=== PATIENT | female | born 1960 | race African-American/Black ===

== ENCOUNTER 2016-08-22 01:44 | Emergency (ER) | payer BC ==
[~2016-08-22] VITALS: Ht 162.6 cm; Wt 84.5 kg
[~2016-08-22 01:44] MED LIST: HYDR-906 PO; HYDR25TA6; NAPR-260 PO
[2016-08-22 01:49] VITALS: Ht 162.6 cm; Wt 84.5 kg
[2016-08-22] MEDS ORDERED: CEPH-443 PO (02:17)
--- NOTE | 2016-08-22 02:46 | ERD ---
ER Documentation Chief Complaint Date/Time DATE: 08/22/16 TIME: 02:38 Chief Complaint RT BREAST SWELLING AND PAIN X 2 DAYS. 2 LUMPS REMOVED 1 YR AGO HPI 55-year-old female presents here in emergency department for complaints of right nipple redness and swelling for 2 days. Patient's complaining of cracking of the nipple, has been having redness and swelling on affected area for the last 2 days. Patient describes the pain as throbbing pain, 8/10 scale, is worse upon touching the area. Patient denies any discharge coming from the area. Patient did not take any medications for symptoms. ROS All systems reviewed and are negative except as per history of present illness. Medications Home Meds Active Scripts Cephalexin* (Keflex*) 500 Mg Capsule, 500 MG PO QID for 10 Days, CAP Prov:ANIRUDH PEREZ [employer] 08/22/16 Naproxen* (Naprosyn*) 500 Mg Tablet, 500 MG PO BID Y for PAIN AND/OR INFLAMMATION, #30 TAB Prov:VIKTORIA MILLER PA-C 07/27/16 Hydrocodone/Acetaminophen (Bandy 5-325 Tablet) 1 Each Tablet, 1 TAB PO Q6H Y for PAIN, #5 TAB Prov:VIKTORIA MILLER PA-C 07/27/16 Reported Medications Hydrochlorothiazide (Hydrochlorothiazide) 25 Mg Tablet 04/18/10 Allergies Allergies: Coded Allergies: Diazepam (Verified Allergy, Mild, 04/18/10) Uncoded Allergies: PCN (Allergy, Mild, 04/18/10) PMhx/Soc History of Surgery: Yes (right lumpectomy) Anesthesia Reaction: No Hx Neurological Disorder: No Hx Respiratory Disorders: No Hx Cardiac Disorders: Yes (htn) Hx Psychiatric Problems: No Hx Miscellaneous Medical Probl: No Hx Alcohol Use: Yes (occassional) Hx Substance Use: No Hx Tobacco Use: No Smoking Status: Current some day smoker FmHx Family History: No coronary disease, No diabetes, No other Physical Exam Vitals Vital Signs Date Time Temp Pulse Resp B/P Pulse Ox O2 Delivery O2 Flow Rate FiO2 08/22/16 01:49 97.5 94 16 150/85 100 Physical Exam GENERAL: The patient is well developed and appropriate for usual state of health, in no apparent distress. CHEST: Clear to auscultation bilaterally. There are no rales, wheezes or rhonchi. Noted right nipple breast to be cracked with erythema surrounding the area, tenderness on palpation noted, no discharge noted. Left breast is normal. No lumps noted in bilateral breast area. HEART: Regular rate and rhythm. No murmurs, clicks, rubs or gallops. No S3 or S4. ABDOMEN: Soft, nontender and nondistended. Good bowel sounds. No rebound or guarding. No gross peritonitis. No gross organomegaly or masses. No Varela sign or McBurney point tenderness. BACK: No midline or flank tenderness. EXTREMITIES: Equal pulses bilaterally. There is no peripheral clubbing, cyanosis or edema. No focal swelling or erythema. Full range of motion. Grossly neurovascularly intact. NEURO: Alert and oriented. Cranial nerves 2-12 intact. Motor strength in all 4 extremities with 5/5 strength. Sensation grossly intact. Normal speech and gait. SKIN: There is no apparent rash or petechia. The skin is warm and dry. HEMATOLOGIC AND LYMPHATIC: There is no evidence of excessive bruising or lymphedema. No gross cervical, axillary, or inguinal lymphadenopathy. Procedures/MDM Medical decision making: Patient's symptoms most likely consistent with mastitis. No symptoms of cellulitis or abscess at this time. No symptoms of sepsis at this time. Patient appears well and is hemodynamically stable. Patient was given prescription for Keflex, is advised to take medications as prescribed, patient is advised to return to emergency department for any worsening symptoms. Patient was advised to see breast specialist for further evaluation of the breast. Departure Diagnosis: Primary Impression: Mastitis Condition: Stable Patient Instructions: ANIRUDH Mckeon NP Aug 22, 2016 02:46
== END 2016-08-22 02:49 | disposition home or self-care (01) ==
LOC: FTE 01:44
DX: N61.0 Mastitis without abscess (principal); I10 Essential (primary) hypertension; F17.210 Nicotine dependence, cigarettes, uncomplicated
CPT/HCPCS: 99283